=== PATIENT | female | born 1935 | race Caucasian/White ===

== ENCOUNTER 2019-03-10 09:29 | Inpatient (IN) | payer OTHER ==
[2019-03-10] VITALS (8 sets, daily range): BP systolic 101–113; BP diastolic 65–75
[~2019-03-10] VITALS: Ht 160 cm; Wt 68.9 kg
--- NOTE | 2019-03-10 09:50 | NUR ---
CODE STROKE CANCELLED BY DR. VELIZ.
[2019-03-10 09:59] LABS: ABSOLUTE EOSINOPHILS 0.1 thou/uL (0.0-0.7); ABSOLUTE MONOCYTES 0.6 thou/uL (0.0-1.2); ABSOLUTE NEUTROPHILS 6.1 thou/uL (1.6-8.1); BASOPHILS 0.2 %; EOSINOPHILS 0.6 %; HEMATOCRIT 33.2 % (37.0-47.0); HEMOGLOBIN 11.3 gm/dL (12.0-15.0); LYMPHOCYTES 22.6 %; MCH 33.3 pg (26.0-34.0); MCHC 34.2 g/dL (28.0-37.0); MCV 97.5 fL (80.0-100.0); MONOCYTES 6.7 %; MPV 7.3 fl. (7.2-11.1); NUCLEATED RBCS 0 /100WBC; PLATELET COUNT* 219 thou/uL (150-400); POLYS 69.9 %; WBC 8.7 thou/uL (4.0-11.0)
[2019-03-10] MEDS ORDERED: LASIX 40 MG TAB40 M2 PO (10:07)
[2019-03-10] MEDS ORDERED: ZYLOPRIM300 MG PO (10:07)
[2019-03-10] MEDS ORDERED: KLOR-CON 1010 MEQ PO (10:07)
[2019-03-10] MEDS ORDERED: OXYBUTYNIN 5 MG5 M2 PO (10:07)
[2019-03-10] MEDS ORDERED: ZOCOR20 MG PO (10:07)
[2019-03-10] MEDS ORDERED: PLAVIX 75 MG TA75 M1 PO (10:08)
[2019-03-10] MEDS ORDERED: CARVEDILOL3.125 MG PO (10:08)
[2019-03-10] MEDS ORDERED: NORVASC5 MG PO (10:08)
[2019-03-10 10:09] LABS: CALCIUM 9.6 mg/dL (8.5-10.1); CREATININE 1.2 mg/dL (0.6-1.3); POTASSIUM 3.1 mmol/L (3.5-5.1)
[2019-03-10 10:14] LABS: ALBUMIN 3.6 g/dL (3.4-5.0); TOTAL PROTEIN 7.3 g/dL (6.4-8.2)
[2019-03-10 10:18] LABS: BE 1.6 mmol/L (-2 to +3); PCO2 30.4 mmHg (35.0-45.0); PO2 81.3 mmHg (75.0-100.0); pH 7.511 (7.340-7.450)
[2019-03-10 10:29] LABS: POC CA IONIZED 4.3 mg/dL (4.5-5.3); POC HEMOGLOBIN 11.2 g/dL (12.0-17.0); POC POTASSIUM 3.1 mmol/L (3.5-4.9)
--- NOTE | 2019-03-10 13:25 | NUR ---
MRI CHECKLIST COMPLETED BY PT'S
--- NOTE | 2019-03-10 17:50 | NUR ---
PATIENT ADMITTED TO THE UNIT FROM THE ER AT 1430. AND SON SOON ENTERED AFTER HER ARRIVAL. PATIENT NIH 17 ON ARRIVAL MOSTLY FOR INABILITY TO COMPREHEND DIRECTIONS AND EXPRESSIVE APHASIA. RIGHT SIDED HEMIPARESIS NOTED, MOSTLY TO UPPER EXTREMITY. PATIENT HAS LEFT SIDED GAZE AT TIMES. UPON ARRIVAL, PATIENT UNABLE TO ANSWER MOST QUESTIONS. CONTINUED TO ANSWER "I DONT KNOW" TO ALL QUESTIONS, INCLUDING NAME. PATIENT LATER ABLE TO STATE "I AM IN THE HOSPITAL" BUT STILL COULD NOT RECALL NAME, YEAR, OR PRESIDENT. REMAINS CALM, PLEASNT. VITALS WNL, WITH EXCEPTION OF TACHYCARDIA IN 120S. ON ROOM AIR. PATIENT'S REPORTED THAT HE FEELS LIKE HE HAS DEMENTIA (ALTHOUGHT NOT DIAGNOSED) AND TO BE PATIENT WITH HIM HE FEELS LIKE HE KEEPS FORGETTING WHAT EVERYONE IS TELLING HIM. HE SAYS HE STILL DRIVES, BUT THE PATIENT HELPS HIM SO HE DOESN'T GET LOST. SON AND ABLE TO TALK WITH NEUROLOGIST OVER THE PHONE. BOTH HAVE LEFT FOR THE NIGHT. NO NEW CONCERNS NOTED AT THIS TIME.
[2019-03-10 19:30] LABS: URINE BILIRUBIN NEGATIVE (Negative); URINE BLOOD TRACE (Negative); URINE CLARITY CLOUDY; URINE COLOR YELLOW; URINE GLUCOSE-RANDOM NEGATIVE (Negative); URINE KETONES NEGATIVE (Negative); URINE PROTEIN NEGATIVE (Negative); URINE SPECIFIC GRAVITY <= 1.005 (1.005-1.030); URINE UROBILINOGEN 0.2 E.U./dl (0.2-1.0)
[2019-03-10 19:31] LABS: URINE LEUKOCYTES-REFLEX 2+ (Negative); URINE NITRITE-REFLEX POSITIVE (Negative)
[2019-03-10 19:40] LABS: SQUAMOUS NONE SEEN /LPF (0-3); URINE WBC-REFLEX >25 Many /HPF (0-5); WBC CLUMPS Moderate (None Seen)
[2019-03-10 19:41] LABS: URINE RBC 3-10 Few /HPF (0-2)
[2019-03-10 19:42] LABS: BACTERIA-REFLEX >30 Many /HPF (None Seen); CASTS None Seen /LPF (None Seen); CRYSTALS None Seen /LPF (None Seen); MUCUS None Seen strn/LPF (None Seen)
[2019-03-11] VITALS (9 sets, daily range): BP systolic 106–145; BP diastolic 64–93
[2019-03-11 03:44] LABS: ABSOLUTE LYMPHOCYTES 1.1 thou/uL (0.8-5.3); ABSOLUTE MONOCYTES 0.5 thou/uL (0.0-1.2); ABSOLUTE NEUTROPHILS 6.5 thou/uL (1.6-8.1); BASOPHILS 0.1 %; EOSINOPHILS 0.2 %; HEMATOCRIT 35.8 % (37.0-47.0); HEMOGLOBIN 11.8 gm/dL (12.0-15.0); MCH 32.6 pg (26.0-34.0); MCHC 32.9 g/dL (28.0-37.0); MONOCYTES 5.8 %; MPV 7.4 fl. (7.2-11.1); NUCLEATED RBCS 0 /100WBC; PLATELET COUNT* 210 thou/uL (150-400); POLYS 79.9 %; RBC 3.62 mil/uL (4.20-5.00); RDW-CV 14.9 % (10.5-14.5); WBC 8.2 thou/uL (4.0-11.0)
[2019-03-11 04:15] LABS: ALBUMIN 3.3 g/dL (3.4-5.0); CALCIUM 9.3 mg/dL (8.5-10.1); TOTAL BILIRUBIN 0.7 mg/dL (<0.1-1.0)
[2019-03-11 04:16] LABS: POTASSIUM 4.2 mmol/L (3.5-5.1)
--- NOTE | 2019-03-11 10:42 | NUR ---
PT TRANSFERED TO ROOM 323. REPORT GIVEN TO JERILYN STATON. NO PERSONAL BELONGINGS TO SEND WITH PT. AND SON FOLLOWED US TO HER ROOM. PT TRANSPORTED PER WHEELCHAIR.
[2019-03-11 10:58] LABS: CHOLESTEROL 135 mg/dL (<200); HDL CHOLESTEROL 46 mg/dL (>40); LDL CHOLESTEROL 62 mg/dL (<100); TC:HDL 2.9 Ratio (Not establshd); TRIGLYCERIDE 137 mg/dL (<150); VLDL 27 mg/dL (<40)
[2019-03-11 10:59] LABS: SERUM ASSESSMENT Clear
--- NOTE | 2019-03-11 16:43 | NUR ---
PT RESTING IN BED THROUGHOUT SHIFT. PT REPOSITIONED FREQUENTLY IN BED. FAMILY AT BS AND UPDATED ON PLAN OF CARE. STACH ON MONITOR. REMAINS NPO PENDING SWALLOW STUDY IN AM. ROSARIO CATH DRAINING CLEAR YELLOW URINE
[2019-03-11 22:09] LABS: GLYCOHEMOGLOBIN (HGB A1C) 4.8 % (4.8-5.6)
[2019-03-12] VITALS (7 sets, daily range): BP systolic 134–160; BP diastolic 82–102
[2019-03-12 05:28] LABS: ABSOLUTE LYMPHOCYTES 0.9 thou/uL (0.8-5.3); ABSOLUTE MONOCYTES 0.7 thou/uL (0.0-1.2); ABSOLUTE NEUTROPHILS 8.8 thou/uL (1.6-8.1); BASOPHILS 0.2 %; HEMATOCRIT 35.9 % (37.0-47.0); HEMOGLOBIN 12.1 gm/dL (12.0-15.0); LYMPHOCYTES 8.5 %; MCH 33.3 pg (26.0-34.0); MCHC 33.8 g/dL (28.0-37.0); MCV 98.4 fL (80.0-100.0); MONOCYTES 6.3 %; MPV 7.4 fl. (7.2-11.1); NUCLEATED RBCS 0 /100WBC; PLATELET COUNT* 235 thou/uL (150-400); RBC 3.65 mil/uL (4.20-5.00); RDW-CV 15.3 % (10.5-14.5); WBC 10.4 thou/uL (4.0-11.0)
[2019-03-12 05:41] LABS: CALCIUM 10.1 mg/dL (8.5-10.1); MAGNESIUM 1.9 mg/dL (1.8-2.4); POTASSIUM 3.7 mmol/L (3.5-5.1)
--- NOTE | 2019-03-12 07:00 | NUR ---
ASSUMED PT CARE APPROX 1930. PT IS AWAKE, ABLE TO ANSWER SIMPLE QUESTIONS. EXPRESSIVE APHASIA NOTED. PRODUCT PICKER TRACING ST. HR 130s-140s, DR SEGOVIA AWARE, NO NEW ORDERS RECIEVED. PT HAS EPISODES OF DISORIENTATION. PUPILS NOTED TO BE UNEQUAL, BUT REACTIVE TO LIGHT. LEFT PUPIL 2MM, RIGHT PUPIL 3MM, DR KELLY INFORMED, NO NEW ORDERS RECIEVED. CLOSELY MONITORED, FALL PRECAUTIONS IN PLACE. CALL LIGHT WITHIN REACH. HOURLY ROUNDING DONE FOR PT SAFETY.
--- NOTE | 2019-03-12 10:50 | NUR ---
HISTOLOGY AIDE: MET WITH PATIENT, SPOUSE AND SON. PROVIDED SUPPORT, ANSWERED QUESTIONS. ASSISTED PATIENT, ABLE TO TALK AND RESPOND TO SIMPLE QUESTIONS.
--- NOTE | 2019-03-12 11:51 | NUR ---
MET WITH PT, SPOUSE AND SON/MIS [phone] TO DISCUSS HOME SITUATION/DC PLANNING. PT LIVES WITH SPOUSE. HE HAS SOME DEMENTIA. PT IS ABLE TO DO HER OWN ADLS, USES CANE PRN. SHE COOKS SIMPLE MEALS, USES SHOWER BENCH AND IS ABLE TO CARE FOR SPOUSE. HE DRIVES BUT PT GOES WITH HIM RE: ASSISTING WITH DIRECTIONS. DISCUSSED POSSIBLE DC NEEDS INCLUDING ACUTE REHAB, SNF OR HOME WIHT HH PENDING THERAPY AND DR GUY. THEY THINK PT HASA DPOA PAPERS AT [facility], WILL CHECK ON. THEY DID REQUEST DNR, HAVE ASKED DR DYSON TO TALK WITH THEM ABOUT THAT. WILL FOLLOW
--- NOTE | 2019-03-12 12:20 | 2DMMODE ---
[place] [address] 2 D/M-MODE ECHOCARDIOGRAM Name: LINDA SEGOVIA Room: [address] IN [facility]#: [id number] Admission: 03/10/19 Attend Phys: Sulma Callaway MD Discharge: Date of : 33 Date of Service: 03/12/19 1220 Report #: [id number] THIS REPORT FOR: //name// APPROVED REPORT Study performed: 03/12/2019 10:01:20 EXAM: Comprehensive 2D, Doppler, and color-flow Echocardiogram Patient Location: In-Patient Room #: [facility] Status: routine BSA: 1.73 HR: 140 bpm BP: 150/84 mmHg Rhythm: NSR Other Information Study Quality: Good Indications CVA/TIA Echo Enhancing Agent Indication: Rule out Shunt Agent(s) / Amount(s) Used: Agitated Saline 10 cc 2D Dimensions IVSd: 13.31 (7-11mm) LVOT Diam: 19.99 (18-24mm) LVDd: 37.41 mm PWd: 12.30 (7-11mm) Ascending Ao: 26.98 (22-36mm) LVDs: 26.51 (25-40mm) Aortic Root: 31.16 mm Volumes Left Atrial Volume (Systole) LA ESV Index: 47.90 mL/m2 Aortic Valve AoV Peak Gregg.: 1.27 m/s AO Peak Gr.: 6.46 mmHg LVOT Max P.83 mmHg AO Mean Gr.: 3.89 mmHg LVOT Mean P.36 mmHg LVOT Max V: 0.84 m/s AO V2 VTI: 17.45 cm LVOT Mean V: 0.56 m/s JOANNE (VTI): 1.91 cm2 LVOT V1 VTI: 10.59 [place] [address] 2 D/M-MODE ECHOCARDIOGRAM Name: LINDA SEGOVIA Room: [address] IN [facility]#: [id number] Admission: 03/10/19 Attend Phys: Sulma Callaway MD Discharge: Date of : 33 Date of Service: 03/12/19 1220 Report #: [id number] Pulmonary Valve PV Peak Gregg.: 0.93 m/s PV Peak Gr.: 3.43 mmHg Tricuspid Valve RAP Estimate: 5.00 mmHg TR Peak Gr.: 27.54 mmHg RVSP: 32.00 mmHg PA Pressure: 32.00 mmHg Left Ventricle The left ventricle is normal size. There is normal LV segmental wall motion. Mild concentric left ventricular hypertrophy. Left ventricular systolic function is normal. The left ventricular ejection fraction is within the normal range. LVEF is 55-60%. The left ventricular diastolic function is normal. Right Ventricle The right ventricle is normal size. The right ventricular systolic function is normal. Atria Left atrium is moderate to severely dilated. Interatrial septum is intact without evidence of ASD or PFO. The right atrium size is normal. Aortic Valve Mild aortic valve sclerosis. No aortic regurgitation is present. Mild aortic stenosis. Mitral Valve There is mitral annular calcification. Mild mitral regurgitation. No evidence of mitral valve stenosis. Tricuspid Valve The tricuspid valve is normal in structure. Mild tricuspid regurgitation. estimated pa pressure 30 mm hg Pulmonic Valve The pulmonary valve is normal in structure. There is no pulmonic valvular regurgitation. Great Vessels The aortic root is normal in size. IVC is normal in size and collapses >50% with inspiration. Pericardium There [place] [address] 2 D/M-MODE ECHOCARDIOGRAM Name: LINDA SEGOVIA Room: [address] IN [facility].#: [id number] Admission: 03/10/19 Attend Phys: Sulma Callaway MD Discharge: Date of : 33 Date of Service: 03/12/19 1220 Report #: [id number] <Conclusion> Mild concentric left ventricular hypertrophy. LVEF is 55-60%. Left atrium is moderate to severely dilated. Mild aortic valve sclerosis. Mild mitral regurgitation. Interatrial septum is intact without evidence of ASD or PFO. <ELECTRONICALLY SIGNED> By: Alex Castillo MD, [facility] 03/12/19 1220 1220 1220 Alex Castillo MD, [facility] /INF
--- NOTE | 2019-03-12 16:05 | NUR ---
RECIEVED A CONSULT FOR INPATIENT ACUTE REHAB. WILL CONTINUE TO FOLLOW AND WAIT FOR DR. CHUNG TO SEE. THANK YOU FOR THE REFERRAL.
--- NOTE | 2019-03-12 20:06 | NUR ---
I ASSUMED CARE OF THE PATIENT AT 0700. SHE IS AWAKE BUT NOT ORIENTED TO ANYTHING. SHE IS RESTLESS AND HAS EXPRESSIVE APHASIA. IS AT THE BEDSIDE AND HAS DEMENTIA. HE ADMITS THAT HE STRUGGLES TO REMEMBER OR KNOW WHAT HE SHOULD DO WHEN SHE IS HERE. HE MISSES HER AND IS VERY EMOTIONAL. HE FEELS LIKE THIS COULD BE 'THE END.' EDUCATION WAS DONE AND FAMILY WAS CONTACTED. ROSARIO IS IN PLACE. SHE HAS RIGHT SIDED WEAKNESS AND IS NOT ABLE TO SIT AT THE BEDSIDE WITHOUT ASSISTANCE OR SHE WILL LEAN AND FALL. HEAD CT AND ECHO WERE COMPLETED TODAY. SPEECH INCREASED HER DIET. DR KELLY WAS CONTACTED WITH CT RESULTS. ORAL CARE IS GIVEN. BED ALARM IS ON. SHE IS INCONT AND HAD A LARGE BOWEL MOVEMENT. PATIENT'S NIECE IS A RETIRED PHYSICIAN AND SHE CALLED TO CHECK ON HER. SHE STATES THAT SHE WILL DISCUSS HER PROGNOSIS WITH THE FAMILY TO BE SURE THEY UNDERSTAND THAT LEEROY WILL NEED ASSISTANCE AND OLETA POSSIBLE PLACEMENT. WILL CONTINUE TO MONITOR. I HAD A LONG CONVERSATION WITH THE AND SON ABOUT CVA, TREATMENT, REHAB, ETC.
[2019-03-13] VITALS (7 sets, daily range): BP systolic 125–154; BP diastolic 81–98
--- NOTE | 2019-03-13 06:25 | NUR ---
ASSUMED PT CARE AT APPROX 1930. PT IS AWAKE AND ORIENTED TO SELF, ABLE TO ANSWER SIMPLE QUESTIONS, EXPRESSIVE APHASIA NOTED. TELEVISION MECHANIC IN PLACE TRACING ST AT 140s. CARDIZEM PO GIVEN ORDERED. POSITION CHANGES DONE Q2H. CALL LIGHT WITHIN REACH. HOURLY ROUNDING DONE FOR PT SAFETY.
--- NOTE | 2019-03-13 07:20 | NUR ---
CHANGE OF SHIFT BESIDE REPORT GIVEN PATIENT SEEN IN BED ASLEEP ASSUMED PATIENT CARE
--- NOTE | 2019-03-13 14:45 | NUR ---
Cardiac Rehab. No family at bedside for Stroke education. Stroke Education materials left at bedside.
--- NOTE | 2019-03-13 15:18 | NUR ---
CONTINUE TO FOLLOW, PER DR CHUNG'S NOTE, NOT SURE PT COULD TOLERATE 3HRS THERAPY FOR INPT REHAB. PT IN AFIB TODAY. MET WITH PT, SON AND SPOUSE. EXPLAINED THAT SNF MAY POSSIBLY BE A BETTER OPTION. DISCUSSED OPTIONS. SON WOULD PREFER PT STAY IN THIS AREA, WOULD WANT [facility]. FURTHER DISCUSSION WITH DR DYSON, HE WOULD LIKE PT RE-EVAL'D FOR INPT REHAB ONCE AFIB RESOLVED. UDPATED SALLY/REHAB LIASON.WILL FOLLOW
--- NOTE | 2019-03-13 15:38 | EKG ---
[place] [address] ELECTROCARDIOGRAM REPORT Name: LINDA SEGOVIA Room: [address] ADM IN M.R.#: [id number] Admission: 03/10/19 Attend Phys: Sulma Callaway MD Discharge: Date of : 34 Report #: [id number] THIS REPORT FOR: //name// [facility] Test Date: 2019-03-13 Test Time: 10:30:04 Pat Name: LINDA SEGOVIA Department: Room: [address] Gender: F Computer Systems Information Director: DIOR : 1935 Requested By: Daniel Agosto Order Number: [id number] MD: Yair Johansen Measurements Intervals [place] Rate: 160 P: 144 NC: 102 QRS: 89 QRSD: 115 T: -33 QT: 298 QTc: 487 Interpretive Statements Supraventricular tachycardia Right bundle branch block Low voltage, precordial leads ST depression, probably rate related Baseline wander in lead(s) V1 No previous ECG available for comparison Electronically Signed On 03-13-2019 15:38:35 CDT by aYir Johansen [email or web address] <ELECTRONICALLY SIGNED> By: Yair Johansen MD, [facility] 03/13/19 1538 1030 1030 Yair Johansen MD, [facility] /EPI
[2019-03-14] VITALS: BP 144/91
[2019-03-14 04:00] VITALS: BP 148/94
--- NOTE | 2019-03-14 06:16 | NUR ---
ASSUMED PT CARE AT APPROX 1930. PT IS AWAKE, ORIENTED TO SELF, APHASIC, ABLE TO ANSWER SIMPLE QUESTIONS WITH YES AND NO. VSS. FRONT OFFICE MANAGER TRACING ST. RE-ASSESSMENT DONE AND CHARTED. REPOSITIONING DONE Q2H. CALL LIGHT WITHIN REACH. HOURLY ROUNDING DONE FOR PT SAFETY.
--- NOTE | 2019-03-14 07:25 | NUR ---
CHANGE OF SHIFT BEDSIDE REPORT GIVEN PATIENT SEEN AT BEDSIDE, IN BED ASLEEP ASSUMED PATIENT CARE
[2019-03-14 08:00] VITALS: BP 128/84
--- NOTE | 2019-03-14 08:49 | CON ---
[address] [address] CONSULTATION Name: LINDA SEGOVIA Room: [address] IN .R.#: [id number] Admission: 03/10/19 Attend Phys: Sulma Callaway MD Discharge: Date of : 34 Report #: [id number] THIS REPORT FOR: //name// CC: Brooke Callaway CARDIOLOGY CONSULTATION INDICATION: Tachycardia. HISTORY OF PRESENT ILLNESS: The patient is an 84-year-old white female who was admitted several days ago with an acute stroke. She has aphasia. The patient had new-onset supraventricular tachycardia. A single bolus of Adenocard 6 mg shows what appears to be underlying atrial flutter. The patient is unable to provide history. With direct questioning, she denies any obvious chest pain or shortness of breath. Chest x-ray suggests cardiomegaly and congestive heart failure. She is hemodynamically stable. HOME MEDICATIONS: Simvastatin 20 mg at bedtime, furosemide 40 mg p.o. daily, potassium chloride 10 mEq daily, oxybutynin 5 mg as directed, allopurinol 300 mg daily, Plavix 75 mg daily, amlodipine 5 mg daily and carvedilol 3.125 mg b.i.d. PAST MEDICAL AND SURGICAL HISTORY: Back surgery remotely, stroke in 2017 and stroke on this admission. There appears to be history of hyperlipidemia and hypertension. FAMILY HISTORY: Noncontributory. REVIEW OF SYSTEMS: Not obtainable. SOCIAL HISTORY: The patient lives in a longterm. PHYSICAL EXAMINATION: VITAL SIGNS: Heart rate currently 143 beats per minute. Blood pressure 134/87. GENERAL: This is an elderly female who is in no apparent distress. HEENT: Head is normocephalic, atraumatic. Extraocular muscles appear to be intact. NECK: Examination of the neck shows no obvious jugular venous distention. CHEST: Examination of the chest reveals diminished breath sounds, without wheezes or rales. CARDIAC EXAMINATION: Reveals a tachycardic rhythm that is regular, without gallop or murmur. ABDOMEN: Examination of the abdomen reveals normal bowel sounds. The abdomen is soft and nontender. EXTREMITIES: Examination of the extremities shows trace ankle and lower extremity edema. SKIN: [place] [address] CONSULTATION Name: LINDA SEGOVIA Room: [address] IN [facility].#: [id number] Admission: 03/10/19 Attend Phys: Sulma Callaway MD Discharge: Date of : 34 Report #: [id number] LABORATORY DATA: A 12-lead EKG shows a supraventricular tachycardia, without acute ST or T-wave abnormality. Echocardiogram shows normal LV systolic function. There is moderate biatrial enlargement. There is ugcy-wu-wzhyzljg mitral insufficiency. IMPRESSION AND RECOMMENDATIONS: 1. Atrial flutter with rapid ventricular response. We will start amiodarone drip after bolus. 2. Recent cerebrovascular accident. The patient's CHADS score is elevated. We would recommend chronic anticoagulation with novel anticoagulant. 3. Hypertension, adequately controlled on current regimen. 4. Hyperlipidemia. The patient had formally been on a statin agent, which should be resumed when the patient is able to take oral medications. <ELECTRONICALLY SIGNED> By: Yair Johansen MD, [facility] 03/14/19 0849 1119 [id number] Johansen MD, FACC /nt
--- NOTE | 2019-03-14 11:47 | NUR ---
REFERRAL FAXED TO [facility] FOR POSSIBLE SNF
[2019-03-14 12:13] VITALS: BP 145/96
[2019-03-14 16:21] VITALS: BP 132/84
[2019-03-14 20:00] VITALS: BP 145/82
[2019-03-14 22:33] LABS: ALBUMIN 2.9 g/dL (3.4-5.0); CREATININE 1.1 mg/dL (0.6-1.3); POTASSIUM 3.3 mmol/L (3.5-5.1); TOTAL BILIRUBIN 0.4 mg/dL (<0.1-1.0); TOTAL PROTEIN 6.9 g/dL (6.4-8.2)
[2019-03-15] VITALS (7 sets, daily range): BP systolic 112–150; BP diastolic 57–84
--- NOTE | 2019-03-15 04:44 | NUR ---
ASSUMED PT CARE AFTER REPORT. PT IS ASLEEP BUT AROUSABLE WHEN NAME IS CALLED, ORIENTED TO SELF, EXPRESSIVE APHASIA NOTED, CAN ANSWER SIMPLE QUESTIONS WITH YES/NO. VSS ON 2L/NC. FISHING LURE ASSEMBLER IN PLACE TRACING AFIB. MAINTAINED ON AMIODARONE DRIP. POSITION CHANGES DONE Q2H. MAINTAINED CLEAN AND DRY. CLOSELY MONITORED.
[2019-03-15 06:55] LABS: URINE BILIRUBIN NEGATIVE (Negative); URINE BLOOD NEGATIVE (Negative); URINE CLARITY CLEAR; URINE COLOR YELLOW; URINE GLUCOSE-RANDOM NEGATIVE (Negative); URINE KETONES NEGATIVE (Negative); URINE LEUKOCYTES NEGATIVE (Negative); URINE NITRITE NEGATIVE (Negative); URINE PROTEIN TRACE (Negative); URINE SPECIFIC GRAVITY 1.025 (1.005-1.030); URINE UROBILINOGEN 0.2 E.U./dl (0.2-1.0)
--- NOTE | 2019-03-15 10:30 | NUR ---
CONTINUE TO FOLLOW, DISCUSSED WITH NURSE. PT HAVING INCREASED DIFFICULTY SWALLOWING. MET WITH PT'S SPOUSE AND SON, GAVE LIST AND DISCUSSED OTHER SNF FACILITIES. THEY WILL CONSIDER. DISCUSSED WITH DR KELLY, PT MAY NEED LTC.
[2019-03-15 13:03] LABS: CALCIUM 10.2 mg/dL (8.5-10.1)
--- NOTE | 2019-03-15 14:13 | NUR ---
SPOKE WITH [facility]. SHE STATED THEY WOULD CONSIDER PT AND MAY HAVE LTC BED AVAILABILITY. ASKED THAT CM F/U WITH HER ON TUESDAY. UPDATED SON/SPOUSE. STILL WAITING TO HEAR BACK FROM OTHER FACILITIES
--- NOTE | 2019-03-15 19:58 | NUR ---
RECEIVED REPORT. ASSUMED CARE OF PT AROUND O730. PT AWAKE, ORIENTED TO SELF ONLY. EXPRESSIVE APHASIA NOTED. NIH 15. LINE ASSEMBLY UTILITY WORKER IN PLACE TRACING AFIB WITH NO CHANGES THIS SHIFT. AM ASSESSMENT AND VITALS COMPLETED CHARTED. AMIO GTT MAINTAINED PER ORDERS. MEDS PER EMAR. PT DENIED PAIN OR DISCOMFORT THIS SHIFT, AND DID NOT APPEAR TO BE IN ANY DISTRESS. PT ABLE TO WORK WITH OT TODAY. APPETITE POOR - PT REFUSING TO EAT AND SPITTING SOME FOOD OUT. REFUSING/SPITTING OUT PO MEDICATION AT TIMES. FAMILY STATED THAT VANILLA IS HER FAVORITE FLAVOR - PT ABLE TO TOLERATING VANILLA ICE CREAM AND VANILLA ENSURE PUDDING. ROSARIO INTACT, URING LIGHT YELLOW. PT BEING TURNED Q2HRS. FAMILY AT BEDSIDE THIS AFTERNOON. PT INCONTINENT OF STOOL - PT CLEANED. PT CURRENTLY RESTING IN BED. CALL LIGHT IS WITHIN REACH. HOURLY ROUNDING PERFORMED. FALL PRECAUTIONS IN PLACE.
[2019-03-16 04:00] VITALS: BP 103/73
--- NOTE | 2019-03-16 06:20 | NUR ---
ASSUMED PT CARE @ 1930. PT ORIENTED TO SELF. ABLE TO ANSWER YES/NO QUESTIONS. PT WAS ABALE TO ANSWER "VANILLA" WHEN ASKED IF SHE WANTED CHOCOLATE AND VANILLA PUDDING. WORD WAS SLIGHTLY SLURRED. RIGHT ARM HAS 3+ EDEMA- IV FLUSHES WELL AND DRAWS BACK BLOOD. NOTIFIED DR AT BEGINNING OF SHIFT PT MIGHT NEED A NEW IV. DR STATED THEY COULD "DEAL WITH IT IN THE MORNING." PT HAS A BRUISE ON THE RIGHT ELBOW THAT IS WARMER THAN THE REST OF THE ARM NOTED THIS AM WHEN LAB UNABLE TO OBTAIN BLOOD. WILL NOTIFY NEXT SHIFT. CALL LIGHT IN REACH. HOURLY ROUNDING FOR SAFETY.
[2019-03-16 08:00] VITALS: BP 142/83
[2019-03-16 09:36] LABS: CALCIUM 9.4 mg/dL (8.5-10.1); CREATININE 0.9 mg/dL (0.6-1.3); POTASSIUM 3.4 mmol/L (3.5-5.1)
--- NOTE | 2019-03-16 10:39 | NUR ---
ASSUMED CARE OF PT AT 0730. PT RESTING IN BED. PT A&0X1, FORGETFUL AND CONFUSED. PT DOES NOT FOLLOW COMMANDS. PT SAYS, "YES" AND "NO" BUT NOT IN APPROPRIATE CONTEXT. NIH COMPLETED. PT SCORING 15. REFER TO CHARTING. PT TRACING AFIB ON THE MATERIALS MANAGER. RATE IN THE LOW 100'S. AMIO GTT INFUSING. PT ON 2L NC SAT UPPER 90'S. PT DOES NOT APPEAR TO BE IN ANY PAIN. ROSARIO TO DEPENDENT DRAINAGE. PT UP WITH MAX ASSIST. PT GOAL FOR TODAY IS TO WORK WITH PT, OT AND CARDIO AND NEURO CONSULT IN PLACE. PT ROGER GOODWIN, CALLED AND UPDATED ON CURRENT PLAN OF CARE. AM ASSESSMENT CHARTED. MEDICATIONS PER MAR CRUSHED IN APPLESAUCE. PT REPOSITIONED EVERY 2 HOURS FOR COMFORT. HOURLY ROUNDING OBSERVED. BED IN LOW POSITION. BED ALARM IN PLACE. FALL PRECAUTIONS IN PLACE. CALL LIGHT WITHIN REACH. WILL CONTINUE PLAN OF CARE.
[2019-03-16 11:56] VITALS: BP 143/60
--- NOTE | 2019-03-16 13:14 | NUR ---
Nutrition: Pt admitted with CVA. Wt stable, 164#. Tolerating Ensure pudding and ice cream - RD ordered Ensure vanilla pudding tid. Pureed diet is ordered. Aphsic. Assessed for LOS. +BM. BG 122, albumin 2.9. Mild nutrition risk. No other nutrition interventions at this time.
--- NOTE | 2019-03-16 13:33 | NUR ---
HEARD BACK FROM [facility]. THEY HAVE SNF AND LTC AVAILABLE AND ARE ABLE TO ACCEPT PT AT DC PENDING AUTH. CALLED TO UPDATE SON AND SUGGESTED HE GO VISIT BOTH [facility] AND [facility] THIS WEEKEND TO MAKE DECISION. ANTICIPATE PT MAY BE READY BY TUESDAY FOR DC TO SNF. WILL STILL NEED TO OBTAIN INS AUTH PRIOR TO DC TO SNF
[2019-03-16 15:33] VITALS: BP 141/70
--- NOTE | 2019-03-16 18:23 | NUR ---
NO ACUTE CHANGES THROUGHOUT SHIFT. REFER TO CHARTING. AMIO GTT DISCONTINED PER DR WALLACE AND PT STARTED ON FLECAINIDE LOAD. REFER TO EMAR. PT CONTINUES TO TRACE AFIB ON THE COIL SHAPER. RATE IN THE 60'S. ROSARIO TO DEPENDENT DRAINAGE. FAMILY AT BEDSIDE THIS AFTERNOON AND UPDATED ON CURRENT PLAN OF CARE. MEDICATIONS PER MAR CRUSHED IN PUDDING. PT NOT PROGRESSING TOWARDS GOALS. PT REPOSITIONED EVERY 2 HOURS FOR COMFORT. HOURLY ROUNDING OBSERVED. BED IN LOW POSITION. BED ALARM IN PLACE. FALL PRECATIONS IN PLACE. CALL LIGHT WITHIN REACH, WILL CONTINUE PLAN OF CARE
[2019-03-16 20:00] VITALS: BP 136/72
[2019-03-17] VITALS: BP 122/55
[2019-03-17 04:00] VITALS: BP 135/69
[2019-03-17 04:53] LABS: CREATININE 0.8 mg/dL (0.6-1.3); POTASSIUM 3.5 mmol/L (3.5-5.1)
[2019-03-17 07:41] VITALS: BP 144/68
--- NOTE | 2019-03-17 08:18 | NUR ---
ASSUMED PT CARE @ 1930. PT'S RIGHT ARM IS MORE SWOLLEN (TAUGHT) AND BRUISE AROUND ELBOW HAS EXTENDED DOWN AND AROUND ARM. PT'S ARM ALSO FEELS MUCH WARMER ON THE RIGHT SIDE THAN THE LEFT; ESPECIALLY IN AREAS OF REDNESS AND SWELLING. PT DOES HAVE <2 CAP REFILL @ FINGERTIPS. TOOK PICTURES AND FILED IN CHART. ALSO MEASURED 2 AREAS ON PT'S ARM-RIGHT FOREARM AND AROUND RIGHT AC. AREAS MARKED AND WILL REMEASURE AREAS WHEN RETURN FOR BROOM MAKER. IV STILL REMAINS PATENT AND FLUSHES WELL. PT ALSO SOUNDS "CRACKLY" AUDIBLY THIS AM. REFUSED PO CARDIZEM X 2 THIS SHIFT. IV METOPROLOL CONTROLLING RATE AND BP. DAY RN NOTIFIED OF ABOVE FINDINGS. CALL LIGHT IN REACH. HOURLY ROUNDING FOR SAFETY.
--- NOTE | 2019-03-17 09:21 | NUR ---
ASSUMED CARE OF PT AT 0730. PT RESTING IN BED. PT A&0X1, FORGETFUL AND CONFUSED. PT FOLLOWS COMMANDS AT TIMES. PT DOES NOT APPEAR TO BE IN ANY PAIN. TRACING AFIB ON THE HOME OFFICE CLAIM SPECIALIST. RATE CONTROLLED. PT ON RA SAT UPPER 90'S. NIH COMPLETED. REFER TO CHARTING. ROSARIO TO DEPENDENT DRAINAGE. PT UP WITH MAX ASSIST. RIGHT SIDED WEAKNESS NOTED. EDEMA AND REDNESS NOTED TO RIGHT UPPER EXTREMITY. PT GOAL FOR TODAY IS TO MAINTAIN HEART RATE BELOW 100 AND DISCHARGE PLANNING TO SNF. AM ASSESSMENT CHARTED. MEDICATIONS PER MAR CRUSHED IN PUDDING. PT REPOSITIONED EVERY 2 HOURS FOR COMFORT. HOURLY ROUNDING OBSERVED. BED IN LOW POSITION. BED ALARM IN PLACE. FALL PRECAUTIONS IN PLACE. CALL LIGHT WITHIN REACH. WILL CONTINUE PLAN OF CARE.
[2019-03-17 12:15] VITALS: BP 135/54
--- NOTE | 2019-03-17 15:25 | NUR ---
Received request from physician to speak with family re: hospice, specifically hospice house. Reviewed chart and spoke with nurse, spouse and son. Discussed options of going to [facility], home with hospice and hospice house. Explained that pt/family would be financially responsible for room and board at [facility]. Spouse and son said that they are not able to care for pt at home. Also discussed private duty caregivers to care for pt at home. Both spouse and son are agreeable with referral to hospice house. They were given options, and their choice would be [facility]. Called Hospice and spoke with Keely Fragoso. Faxed referral. They do not have a bed available today at facility, but will have their nurse contact pt's son to arrange time to visit and do on-site evaluation of pt. Will remain available to assist as needed.
[2019-03-17 16:23] VITALS: BP 146/65
--- NOTE | 2019-03-17 17:36 | NUR ---
NO ACUTE CHANGES THROUGHOUT SHIFT. REFER TO CHARTING. DR BEJARANO SPOKE WITH PT AND PT FAMILY REGARDING HOSPICE, FAMILY RECEPTIVE. CM SPOKE WITH PT FAMILY WELL AND HOSPICE HOUSE TO COME OUT AND SPEAK WITH PT AND PT FAMILY. PT NOT PROGRESSING TOWARDS GOALS. PT REFUSING ORAL MEDICATIONS- MEDICATIONS CRUSHED AND PLACED IN VANILLA PUDDING- PT SPIT OUT PUDDING. CONTINUES TO TRACE AFIB ON THE UX MANAGER. RATE CONTROLLED. ON RA SAT UPPER 90'S. PT DENIES ANY PAIN OR SHORTNESS OF BREATH. ROSARIO TO DEPENDENT DRAINAGE. FAMILY AT BEDSIDE THROUGHOUT SHIFT. MEDICATIONS PER DEC. PT REPOSITIONED EVERY 2 HOURS FOR COMFORT. HOURLY ROUNDING OBSERVED. BED IN LOW POSITION. BED ALARM IN PLACE. FALL PRECAUTIONS IN PLACE. CALL LIGHT WITHIN REACH. WILL CONTINUE PLAN OF CARE.
[2019-03-17 23:59] VITALS: BP 136/61
[2019-03-18 04:00] VITALS: BP 141/61
[2019-03-18 07:47] VITALS: BP 131/56
--- NOTE | 2019-03-18 10:10 | NUR ---
ASSUMED CARE OF PT AT 0730. PT LYING IN BED. PT A&0X1, FORGETFUL AND CONFUSED. PT DOES NOT ANSWER QUESTIONS APPROPRIATELY, PT SHAKES HEAD YES/NO AND FOLLOWS COMMANDS AT TIMES. PT REFUSING PO MEDICATIONS. PT TRACING AFIB ON THE PHOTOLETTERING MACHINE OPERATOR. ON 2L NC SAT UPPER 90'S. PT DOES NOT APPEAR TO BE IN ANY PAIN OR SHORT OF BREATH. ROSARIO TO DEPENDENT DRAINAGE. NIH COMPLETED. REFER TO CHARTING. PT GOAL FOR TODAY IS FOR FAMILY TO MEET WITH HOSPICE, MAINTAIN HEART RATE BELOW 100 AND REPOSITION EVERY 2 HOURS FOR COMFORT. AM ASSESSMENT CHARTED. MEDICATIONS PER DEC. PT REPOSITIONED EVERY 2 HOURS FOR COMFORT. HOURLY ROUNDING OBSERVED. BED IN LOW POSITION. BED ALARM IN PLACE. FALL PRECAUTIONS IN PLACE. CALL LIGHT WITHIN REACH. WILL CONTINUE PLAN OF CARE
[2019-03-18 12:00] VITALS: BP 126/56
[2019-03-18 13:10] VITALS: BP 131/56
[2019-03-18] MEDS ORDERED: ELIQUIS5 MG PO (13:28)
[2019-03-18] MEDS ORDERED: ASPIRIN300 MG RECTAL (13:29)
--- NOTE | 2019-03-18 15:36 | NUR ---
HOSPICE HERE TO SEE PT. DISCHARGE ORDERS RECEIVED FOR PT TO DISCHARGE TO [facility]. DISCHARGE INSTRUCTIONS COPIED AND PLACED IN FOLDER FOR TRANSPORT. PRINTING SHOP SUPERVISOR REMOVED. IV LEFT IN PLACE PER DR ORDER. PT DISCHARGED WITH ALL BELONGINGS AND PAPERWORK VIA CART AND [facility] TRANSPORT. REPORT CALLED TO JERILYN BALL AT [facility].
[2019-03-18 22:09] LABS: ADENOVIRUS Negative (Negative); INFLUENZA A Negative (Negative); INFLUENZA B Negative (Negative); METAPNEUMOVIRUS Negative (Negative); PARAINFLUENZA 1 Negative (Negative); PARAINFLUENZA 2 Negative (Negative); PARAINFLUENZA 3 Negative (Negative); RHINOVIRUS Negative (Negative); RSV A Negative (Negative); RSV B Negative (Negative)
--- NOTE | 2019-03-19 16:31 | CON ---
[address] [address] CONSULTATION Name: LINDA SEGOVIA Room: [address] M.R.#: [id number] Admission: 03/10/19 Attend Phys: Sulma Callaway MD Discharge: 03/18/19 Date of : 33 Report #: [id number] THIS REPORT FOR: //name// CC: Brooke Callaway DATE OF SERVICE: 03/10/2019 HISTORY OF PRESENT ILLNESS: This is an 84-year-old female patient who was evaluated by me for stroke. The patient is aphasic and unable to provide any history. The patient sleeps in a different room than the does. saw this patient well around 9:00 last night when she went to sleep. When she did not come out this morning by 9:00, the patient's went and found the patient aphasic and right hemiplegic. She continued to be the same although the weakness on the right upper extremity has improved some. The symptom of aphasia is severe and is not fluctuating. REVIEW OF SYSTEMS: Indicate a stroke about 2 years ago. She was at [facility]. She made a fairly good recovery and was functional up until yesterday. She has never been diagnosed with atrial fibrillation. She is on Plavix for her stroke. A 14-point review of system was carried out and it is as summarized above. PAST MEDICAL HISTORY: Positive for stroke, but that was 2 years ago. FAMILY HISTORY: Negative for early age stroke. SOCIAL HISTORY: The patient lives with the . She does not drink alcohol or smoke. PHYSICAL EXAMINATION: The patient's examination indicates she is drowsy, but wakes up. She can sometime follow simple commands, but then keep doing the same things again. She had no speech output. Examination was very difficult. She does have left gaze preference. She has profound right-sided weakness. The rest of the neurological examination is not possible because the patient is not able to understand the instructions. No respiratory difficulty was noticed. Her blood pressure is running low at 116/72, heart rate is high at 123 and temperature is 97.5. LABORATORY DATA: Indicates a normal white count. Potassium is trace low, which is being addressed by Emergency Room physician. I reviewed the patient's CT and then reviewed the patient's CTA. It does appear to be showing findings consistent with CVA on the left side, but there is no thrombus according to the radiologist. 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 [address] CONSULTATION Name: LINDA SEGOVIA Room: [address]#: [id number] Admission: 03/10/19 Attend Phys: Sulma Callaway MD Discharge: 03/18/19 Date of : 33 Report #: [id number] prior CVA on the right side. She also has severe atrophy. I discussed with Dr. Sainz, the Emergency Room physician multiple times. I had multiple discussions with the family before and after the CT angiogram. Unfortunately, the patient looks like she had a large left hemispheric cerebrovascular accident. We need to confirm that with MRI. If that is confirmed, there is no intervention, which can be done. The patient is outside the window for TPA and looks like the patient has already infarcted the tissue because both volume and flow is diminished. I did ask them to talk about code status especially if the patient's MRI demonstrates large left hemispheric CVA and she had a prior right hemispheric CVA. They will consider that. Time spent was 50 minutes, majority of the time was spent counseling the family on multiple occasions and coordinating her care. Thank you very much. <ELECTRONICALLY SIGNED> By: Gianfranco Cadet MD 03/19/19 [id number] Cadet MD /nt
== END 2019-03-18 15:39 | disposition hospice, home (50) | DRG 64 ==
LOC: EDBD 09:29 → M.ERS 09:29 → M.TBA-ER 12:37 → M.2W 12:37 → M.ICU 14:23 → M.2W 03-11 10:27
PROVIDERS: Internal Medicine; Internal Medicine Cardiovascular Disease; Personal Emergency Response Attendant; ADMIT Family Medicine
DX: I63.9 Cerebral infarction, unspecified (principal); I50.33 Acute on chronic diastolic (congestive) heart failure; I48.92 Unspecified atrial flutter; G81.91 Hemiplegia, unspecified affecting right dominant side; E44.0 Moderate protein-calorie malnutrition; E87.0 Hyperosmolality and hypernatremia; R47.01 Aphasia; I48.91 Unspecified atrial fibrillation; E87.6 Hypokalemia; G31.84 Mild cognitive impairment of uncertain or unknown etiology; R26.9 Unspecified abnormalities of gait and mobility; I11.0 Hypertensive heart disease with heart failure; E78.5 Hyperlipidemia, unspecified; Z74.01 Bed confinement status; Z68.26 Body mass index [BMI] 26.0-26.9, adult; Z86.73 Personal history of transient ischemic attack (TIA), and cerebral infarction without residual deficits; Z79.02 Long term (current) use of antithrombotics/antiplatelets; Z79.899 Other long term (current) drug therapy